=== PATIENT | male | born 1990 | race Caucasian/White ===

== ENCOUNTER 2019-02-25 06:17 | Observation (INO) ==
--- NOTE | 2019-02-25 07:47 | History & Physical Bridge Note ---
Date of Service February 25, 2019 History & Physical Bridge Note I have examined the patient, reviewed the History & Physical and in the interval since the performance of the History & Physical I have noted the following changes of clinical significance: no changes noted
[2019-02-25] MEDS ORDERED: fentaNYL citrate 100 MCG/2 ML VIAL ONE ×4 (07:51→10:30)
[2019-02-25] MEDS ORDERED: MIDAZOLAM HCL 5 MG/ML 1 ML VIAL ONE ×3 (07:52→10:01)
--- NOTE | 2019-02-25 07:52 | Pre Anesthesia Assessment ---
Date of Service February 25, 2019 Pre Sedation Assessment Vital Signs Temp Pulse Resp BP Pulse Ox 02/25/19 07:09 36.4 C L 50 L 16 134/83 97 Cardiovascular + regular rate Respiratory + respiratory effort normal Pre-Sedation Airway Assessment Smoking Status: Former smoker Hx Sleep Apnea: No Hx Difficult Intubation: No Short, Thick Neck: No Thyromental Distance: > or= 3.5 Finger Breadths Oral Cavity: + WNL Mallampati Class: III ASA: ASA1 Procedure Planning Contraindications for Sedation: none Current Medications Reviewed: Yes Notes The planned sedation has been discussed with the patient. Informed Consent was obtained. I have identified the patient, determined the appropriateness of sedation and have assessed the patient immediately prior to the procedure. All medicine(s) and interventions are by my order.
[2019-02-25] MEDS ORDERED: ISOPROTERENOL HCL 0.2 MG/ML 5 ML AMP IV ONE (08:47)
[2019-02-25] MEDS ORDERED: HEPARIN 25000 UNIT/500 ML D5W IV ONE (09:32)
[2019-02-25] MEDS ORDERED: HEPARIN SOD (PORCINE) 1000 UNIT/ML 10 ML VIAL ONE ×2 (09:32→10:16)
[2019-02-25] MEDS ORDERED: PROTAMINE SULFATE 10 MG/ML 5 ML VIAL ONE (11:36)
--- NOTE | 2019-02-25 11:46 | Post Operative Brief Note ---
Cardiology Brief Post Op Date of Surgery February 25, 2019 Pre & Post Diagnosis Operation Date: 02/25/19 08:00 <No data on this case meets the specified criteria> Procedure Electrophysiologic testing and ablation accessory pathway via right internal jugular vein, right femoral vein and right femoral artery Isoproterenol used for arrhythmia induction and test Heparin used for anticoagulation during retrograde left atrial portion of the procedure Protamine administered at the conclusion of the case Annual Giving Manager Diego Evans MD Psychiatric Assistant none Estimated Blood Loss 10 Findings Consistent with Post-Op Diagnosis Intermittent antegrade assess Re pathway conduction at baseline Multiple accessory pathways seen during electrophysiologic testing 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 Complications none Disposition Accompanied Patient To Recovery: No Disposition: PCU Overlapping Procedure I was immediately available: during the entire case.
[2019-02-25] MEDS ORDERED: OXYCODONE HCL IR 5 MG TAB (IMMEDIATE RELEASE) PO PRN (11:48)
[2019-02-25] MEDS ORDERED: IBUPROFEN 800 MG TAB PO PRN (11:51)
[2019-02-25] MEDS ORDERED: ACETAMINOPHEN 500 MG TAB PO PRN (11:51)
[2019-02-25] MEDS ORDERED: LORazepam 1 MG TAB PO PRN (11:52)
[2019-02-25] MEDS ORDERED: ONDANSETRON INJ 2 MG/ML 2 ML VIAL IV PRN (11:52)
--- NOTE | 2019-02-26 11:07 | Discharge Summary ---
Date of Service February 26, 2019 Admission HPI Per Admitting Provider Patient is a 28-year-old gentleman with a history of abnormal EKG indicating WPW pattern. Patient was admitted for electrophysiologic testing and possible ablation. Principal Diagnosis Mxiea-Uyvroldxu-Bccjk Discharge Exam Examination of the right groin access site did not reveal any evidence of hematoma or complication. Right internal jugular access site free of bleeding or hematoma Discharge Data Allergies Allergy/AdvReac Type Severity Reaction Status Date / Time No Known Drug Allergies Allergy Unknown none Verified 02/25/19 06:36 Procedures Performed Operation Date: 02/25/19 08:00 Actual Procedures p EPS + Ablation for SVT Flutter - MD tima Mejia LA Pacing (Add-On)(Not Applicable) - MD tima eMjia Ultrasound Vascular Access(Bilateral) - Juan Evans MD Hospital Course (1) Exlrm-Nsgzqlofk-Odnmf pattern: On the day of admission the patient underwent electrophysiologic testing which revealed evidence of multiple accessory pathways. He appeared to have a left lateral accessory pathway, a post dural to mid septal accessory pathway and possibly a mid posterior assess Re pathway. There was no pre-excitation at baseline. Function of the accessory pathways was quite poor in intermittent. Attempts to ablate the accessory pathway Suhas or made both from the right atrial and retrograde aortic approach. I think conclusion of the case there was no pre-excitation. There was evidence of intermittent assess Re pathway conduction with ventricular pacing, but this was also quite intermittent and the function of the pathways appeared quite poor. This presented significant problems for mapping and ablation. Given the relatively poor function of the accessory pathways in the absence of a documented arrhythmia in the outpatient setting, additional attempts at ablation were abandoned. EKG obtained subsequent to the procedure did not reveal any evidence of pre- excitation. However, on overnight telemetry monitoring there was evidence of intermittent pre-excitation. Conduction was quite poor however as pre- excitation varied or was eliminated on a [id number] basis. Total Time Total Time Spent Total Time Spent (In Minutes): 10 Total Time Includes: Examination of the Patient, Discharge Planning and Medication Reconciliation Discharge Plan Discharge Items [facility] Disposition: [facility] Reason For Visit: Wodxb-Zapkpbpkl-Dwaxh Syndrome Discharge Diagnosis: WPW Discharge Goals: Therapeutic intervention Activity: Per 'Additional Instructions' section Activity Comment: No lifting >10# or straining for 7 days Lifting: No more than 10 pounds Bathing: No limitations Non-emergency contact: Application Chemist Call non-emergency contact if: you have any medication questions and your symptoms worsen Follow-up/Referrals: Nikki ALBRIGHT [Primary Care Provider] - Diet: Regular Addtl Provider Instructions: none Prescriptions: No Action No Known Home Medications RF: 0 Admission Data Admit Date/Time: 02/25/19 11:48 Attending Provider: Juan Evans Admit Provider: Juan Evans Primary Care Provider: Nikki ALBRIGHT Service: Telemetry Other Interventions: Discharge Summary Assessment (RN) Last Done: 02/26/19 10:18
--- NOTE | 2019-03-31 08:13 | Procedure Note ---
Procedure Note Date of Service March 31, 2019 Note Procedure performed: Ablation of supraventricular tachycardia, mapping of tachycardia sites using roving catheter, complete electrophysiologic testing including pacing from left atrium via the coronary sinus, arrhythmia induction on and off isoproterenol using programmed stimulation, ultrasound guided vascular access Staff lens grinder and polisher: Diego Evans MD who 9 indication: Patient is a 28-year-old gentleman currently incarcerated who was noted on routine evaluation to have pre-excitation on EKG. After discussion in the clinic the patient wished to undergo electrophysiologic testing and possible ablation Procedure in detail: The patient was informed of the risks benefits and alternatives to the intended procedure. He understood and wished to proceed. He was taken to the electrophysiology suite in a fasting state. Conscious sedation was administered per protocol the patient was monitored electrocardiographic throughout today's procedure. The right internal jugular and right femoral areas were prepped and draped in the usual sterile fashion. These areas were anesthetized using subcutaneous administration of lidocaine and Marcaine solution. The right internal jugular vein was subsequently access using modified Seldinger technique under ultrasound guidance and a 6 Syrian venous sheath was placed the site over guidewire. The right femoral vein was subsequently accessed using modified Seldinger technique and 3 sheaths were placed over guidewires at this site. The sheaths were used to facilitate passage of the EP catheters to the respective chambers under fluoroscopic guidance. This included right ventricular, his bundle and coronary sinus catheters. The patient's baseline conduction system was characterize. Attempts at arrhythmia induction with an performed using programmed stimulation on and off isoproterenol. Once the tachycardia was induced and the elements of the tachycardia identified, a radiofrequency ablation catheter was advanced to the area of interest and tachycardia sites m apped. Radiofrequency lesions were placed in a temperature limited mode in attempt to eliminate tachycardia. As the tachycardia could not be eliminated from the right atrium, right femoral arterial access was obtained and a radiofrequency ablation catheter was advanced in a retrograde fashion into the left ventricle and tachycardia sites were mapped along the mitral annulus. During the left-sided portion of the procedure the patient did undergo systemic anticoagulation and serial ACT measurements were monitored. Additional lesions were placed in the left side along the mitral annulus in an attempt to eliminate assess Re pathway conduction. Repeat attempts at arrhythmia induction were subsequently made on and off isoproterenol. Patient's baseline conduction was subsequently characterize prior to removal of the sheaths and catheters. Hemostasis was achieved at the access sites using manual pressure after reversal of the anticoagulation with protamine. The patient tolerated the procedure well. There were no immediate complications. Findings: Baseline intracardiac intervals: Cycle length in the atrium 950 milliseconds Cycle length in the ventricle 948 milliseconds OK interval: 152 milliseconds QRS duration 94 milliseconds QT interval 346 milliseconds Corrected QT 355 AH interval 90 milliseconds HV interval 55 milliseconds The baseline sedated state av Wenckebach occurred at 470 milliseconds With program stimulation the AV node effective refractory period was 500 milliseconds Ventricular stimulation in the baseline sedated state demonstrated retrograde effective fracture. A 490 milliseconds. It should be noted that the initial retrograde conduction was concentric in nature. There was no pre-excitation in the baseline state Rapid atrial pacing did not result in any pre-excitation at baseline state On isoproterenol infusion, retrograde conduction improved and there was evidence of left lateral accessory pathway based on eccentric retrograde conduction. The retrograde effective refractory period of the accessory pathway appeared to be 320 milliseconds. One echo beat was seen. The effective refractory period of the AV node on isoproterenol was 300 milliseconds. Again, this conduction was concentric and decremental in nature. On isoproterenol there was occasional pre-excitation with program stimulation. Effective refractory period of antegrade AP conduction was 270 milliseconds on isoproterenol. Arrhythmia induction: On high doses of isoproterenol and with programmed stimulation from the ventricle, a tachycardia was induced. The initial tachycardia was narrow complex and had a cycle length of 322 milliseconds. His refractory PVCs introduced during the tachycardia did advance the atrial signal with Re setting of the tachycardia. However, the retrograde conduction alternated between what appeared to be a left lateral pathway and a mid lateral pathway. With programmed stimulation from the ventricle there was a single induction of a wide complex tachycardia suggestive of antidromic AVRT. Retrograde conduction appeared to be concentric and occur over the AV node. Tachycardia cycle length was 300 milliseconds. It terminated with introduction of a single PVC. Ablation: At this point it was felt that the patient had multiple accessory pathways. Unfortunately, induction of arrhythmia was unreliable and retrograde conduction via either pathway was intermittent in nature. Based on what appeared to be the presence of a left lateral accessory pathway, retrograde approach was taken. A 7 Syrian 4 millimeter radiofrequency ablation catheter was advanced to the mitral annulus in a retrograde fashion. Attempts to locate the pathway were made using both program stimulation and pacing from the ventricle. Mapping was performed using a roving catheter on the mitral annulus. Multiple radiofrequency lesions were placed in attempt to eliminate retrograde conduction. Retrograde conduction shifted to what appeared to a location which appear to be more proximal in the coronary sinus. Multiple attempts were made to eliminate this conduction from the left side prior to returning to the right atrium. Additional attempts at radiofrequency ablation of what appeared to be a more posteroseptal pathway were then performed from the right atrium. Post ablation intervals: Cycle length in the atrium 764 milliseconds Cycle length in the ventricle 772 milliseconds OK interval 138 milliseconds QRS duration 90 milliseconds QT interval 352 milliseconds Corrected QT 401 AH interval 70 milliseconds HV interval 48 milliseconds At the conclusion of the case who did appear to be dual AV temitope physiology. Programmed stimulation revealed the effective refractory period of the fast pathway to be 340 milliseconds and the effective refractory period of the slow pathway to be 300 milliseconds [address] Wenckebach occurred at 390 milliseconds Retrograde pacing revealed AV dissociation at the conclusion of the case. Conclusions: Coding
== END 2019-02-26 15:53 ==
LOC: ASU 06:17 → 2E 06:17